=== PATIENT | male | born 1995 | race Caucasian/White ===

== ENCOUNTER → 2021-06-18 | Outpatient (CLI) | payer OTHER ==
[~2021-06-18] MED LIST: CELEXA10 MG PO
== END | disposition home or self-care (01) ==
LOC: COVID19 15:03
PROVIDERS: ATTEND Internal Medicine
DX: U07.1 COVID-19 (principal)

== ENCOUNTER 2022-03-10 16:53 | Emergency (ER) | payer MEDICAID ==
[2022-03-10] MEDS ORDERED: AMOXICILLIN500 M2 PO (18:19)
[2022-03-10] MEDS ORDERED: CORTISPORIN SUS10 ML OT (18:19)
== END 2022-03-10 18:53 | disposition home or self-care (01) ==
LOC: ED 16:53
DX: H66.92 Otitis media, unspecified, left ear (principal); H60.92 Unspecified otitis externa, left ear; Z79.899 Other long term (current) drug therapy

== ENCOUNTER 2023-07-31 22:32 | Emergency (ER) | payer MEDICAID ==
[~2023-07-31] VITALS: Ht 182.8 cm; Wt 158.8 kg
[~2023-07-31 22:32] MED LIST changes: +AMOXICILLIN500 M2 PO; +CORTISPORIN SUS10 ML OT
[2023-07-31] MEDS ORDERED: Ketorolac Tromethamine 60 MG/2 ML VIAL IM ONE (23:40)
== END 2023-08-01 00:12 | disposition home or self-care (01) ==
LOC: ED 22:32
DX: S00.03XA Contusion of scalp, initial encounter (principal); F32.A Depression, unspecified; W22.8XXA Striking against or struck by other objects, initial encounter; Y93.89 Activity, other specified; Y92.002 Bathroom of unspecified non-institutional (private) residence as the place of occurrence of the external cause; Y99.8 Other external cause status

== ENCOUNTER 2023-08-28 13:38 | Emergency (ER) | payer MEDICAID ==
[~2023-08-28] VITALS: Ht 180.3 cm; Wt 163.3 kg
[2023-08-28] MEDS ORDERED: LISINOPRIL10 M1 PO (15:12)
[2023-08-28] MEDS ORDERED: BUSPIRONE HCL10 MG PO (15:12)
[2023-08-28] MEDS ORDERED: NALTREXONE HCL50 MG PO (15:13)
[2023-08-28] MEDS ORDERED: SERTRALINE HYDR50 MG PO (15:13)
[2023-08-28 15:26] LABS: BASO # 0.1 10*3/uL (0.0-0.1); BASO % 1.1 % (0.0-1.0); EOS # 0.5 10*3/uL (0.0-0.4); EOS % 5.1 % (1.0-4.0); LYMPH % 28.6 % (27.0-41.0); MEAN CELL VOLUME 93.3 fl (80.0-94.0); MEAN CORPUSCULAR HGB CONC 34.4 g/dl (33.0-37.0); MEAN PLATELET VOLUME 8.4 fl (9.6-12.3); MONO # 0.7 10*3/uL (0.1-1.0); MONO % 6.3 % (3.0-9.0); NEUT # 6.1 10*3/uL (2.3-7.9); NEUT % 58.6 % (47.0-73.0); PLATELET COUNT AUTOMATED 218 10*3/uL (130-400); RED BLOOD COUNT 5.79 10*6/uL (4.50-5.90); RED CELL DISTRI WIDTH 11.9 % (0-14.5); WHITE BLOOD COUNT 10.5 10*3/uL (4.8-10.8)
[2023-08-28 15:30] LABS: MEAN CORPUSCULAR HGB 32.1 pg (27.0-31.0)
[2023-08-28 15:47] LABS: ALKALINE PHOSPHATASE 76 U/L (46-116); BUN < 5 mg/dl (9-23); CHLORIDE 107 mmol/L (98-107); LIPASE 35 U/L (12-53); POTASSIUM 3.6 mmol/L (3.4-5.1); SGPT/ALT 100 U/L (5-49); TOTAL PROTEIN 7.3 gm/dL (6.0-8.0)
[2023-08-28] MEDS ORDERED: VIBRAMYCIN100 MG PO (17:10)
== END 2023-08-28 17:18 | disposition home or self-care (01) ==
LOC: ED 13:38
PROVIDERS: Internal Medicine
DX: N49.2 Inflammatory disorders of scrotum (principal); F32.A Depression, unspecified